=== PATIENT | female | born 1995 | race Caucasian/White ===

== ENCOUNTER 2020-06-17 10:35 | Inpatient (IN) | payer BC ==
[~2020-06-17] VITALS: Ht 157.5 cm; Wt 68.1 kg
[2020-06-17 11:17] LABS: APPEARANCE,URINE Clear (CLEAR); BILIRUBIN,URINE Negative (NEGATIVE); BLOOD, URINE Trace-intact Ery/uL (NEGATIVE); COLOR,URINE Yellow (YELLOW); KETONES,URINE Negative (NEGATIVE); LEUKOCYTE ESTERASE ,URINE Negative (NEGATIVE); NITRITE, URINE Negative (NEGATIVE); PROTEIN,URINE Negative (NEGATIVE); UGLUCOSE Negative (NEGATIVE); UROBILINOGEN,URINE 0.2 EU/dL (0.2)
[2020-06-17] MEDS ORDERED: ONDANSETRON HCL/PF 4 MG/2 ML VIAL ONE (11:22)
[2020-06-17 11:23] LABS: BASOPHILS # (AUTO) 0.1 /CMM (0.0-0.2); BASOPHILS % (AUTO) 1.9 % (0.0-2.0); HEMATOCRIT 40 % (33-45); HEMOGLOBIN 13.5 g/dL (11.5-14.8); LYMPHOCYTES # (AUTO) 1.8 /CMM (0.8-4.8); MEAN CORPUSCULAR HGB CONC 34 g/dl (31.0-36.0); MEAN CORPUSCULAR VOLUME 88 fL (82-100); MONOCYTES # (AUTO) 0.5 /CMM (0.1-1.30); MONOCYTES % (AUTO) 7.4 % (2.0-12.0); NEUTROPHILS # (AUTO) 4.2 /CMM (1.8-8.9); NEUTROPHILS % (AUTO) 59.7 % (43.0-81.0); PLATELET COUNT (AUTO) 341 /CMM (150-450); RED BLOOD CELL COUNT(AUTO) 4.55 MIL/uL (4.0-5.2)
[2020-06-17] MEDS ORDERED: MORPHINE SULFATE INJ 4 MG/ML DISP.SYRIN ONE (11:23)
[2020-06-17 11:26] LABS: BACTERIA,URINE Few /HPF (None Seen); SQUAMOUS EPITHELIAL CELL,UR Many /HPF (None Seen)
[2020-06-17 11:30] LABS: CALCIUM, SERUM 8.5 mg/dL (8.5-10.1); CREATININE 0.8 mg/dL (0.6-1.3); POTASSIUM 4.3 mmol/L (3.5-5.1)
[2020-06-17] MEDS ORDERED: MORPHINE SULFATE INJ 2 MG/ML DISP.SYRIN IV ONE (11:30)
[2020-06-17] MEDS ORDERED: ONDANSETRON HCL/PF 4 MG/2 ML VIAL IVP ONE (11:30)
[2020-06-17] MEDS ORDERED: IV NS 0.9% 1,000 ML BAG IV ONE (11:30)
--- NOTE | 2020-06-17 11:41 | NUR ---
BIBS FROM HOME TO ER BED 7. AAOX4. NOT IN RESP DISTRESS. AMBULATORY. CAME IN FOR RLQ ABDOMINAL PAIN X 2 DAYS. PT RATES HER PAIN 7/10. DENIES NAUSEA NOR VOMMITING. MD WAS AT THE BEDSIDE FOR EVAL. BLOOD DRAWN BY TECH. IV LINE ESTABLISHED ON L AC 20G. MEDICATED ORDERED
[2020-06-17 11:42] LABS: ALBUMIN 3.7 g/dL (3.4-5.0); BILIRUBIN,DIRECT 0.1 mg/dL (0.0-0.2); BILIRUBIN,TOTAL 0.3 mg/dL (0.2-1.0); TOTAL PROTEIN, SERUM 7.4 g/dL (6.4-8.2)
[2020-06-17] MEDS ORDERED: PARO40TA4 PO (12:19)
[2020-06-17] MEDS ORDERED: NORE1TAB93 PO (12:19)
--- NOTE | 2020-06-17 12:22 | NUR ---
PAGED [facility].
[2020-06-17] MEDS ORDERED: PIPERACILLIN /TAZOBACTAM 3.375 G in IV D5W 50 ML IV ONE (12:30)
--- NOTE | 2020-06-17 13:28 | NUR ---
REPORT GIVEN TO JULIANA WADE FOR [facility]
--- NOTE | 2020-06-17 14:43 | NUR ---
NURSING SUP GAVE M/S BED 307-1.
--- NOTE | 2020-06-17 15:08 | NUR ---
PT TRASNPORTED TO UNIT ON WHELLCHAIR IN STABLE CONDITION. NAD NOTED DURING TRANSPORT. PT AMBULATEDFROM W/C TO BED
--- NOTE | 2020-06-17 15:11 | NUR ---
MS RN ADMITTING NOTES PT ADMITTED TO UNIT AT THIS TIME. PT TRANSPORTED BY WHEEL CHAIR TO UNIT AT THIS TIME. GOT REPORT FROM JULIANA FELIX, IN THE ER. AOX4. PT ABLE TO VERBALIZE NEEDS. VS BP 134/85 , HR 97, RR 20, T 99.0 , SPO2 99%. RESPIRATIONS EVEN AND UNLABORED WITH EQUAL RISE AND FALL IN CHEST. NO SOB NOTED , NO C/O PAIN AT THIS TIME, NO S/S OF ANY ANY ACUTE DISTRESS. IV ACCESS IN LAC G#20, INTACT AND PATENT. ACTIVE BOWEL SOUNDS IN ALL FOUR QUADRANTS, GOOD CIRCULATION WITH PRESENT PULSES. LUNG SOUNDS CLEAR THROUGHOUT ON AUSCULTATION.BELONGINGS ACCOUNTED FOR, SIGNED BY PT AND FILED IN CHART. PT ORIENTED TO ROOM/UNIT. SAFETY PRECAUTIONS IN PLACE. BED IN LOWEST LOCKED POSITION, SIDE RAILS UP X2, HOB ELEVATED TO SEMI FOWLERS POSITION, CALL LIGHT WITHIN REACH. WILL CONTINUE TO MONITOR
[2020-06-17 16:38] VITALS: BP 134/85
[2020-06-17] MEDS ORDERED: NEPRO 1,000 ML BOTTLE NG PRN (17:00)
[2020-06-17] MEDS ORDERED: Z GUARD REMEDY 2 OZ OINT TP PRN (17:30)
[2020-06-17] MEDS ORDERED: ZOLPIDEM TARTRATE 5 MG TABLET PO PRN (17:30)
[2020-06-17] MEDS ORDERED: MAGNESIUM HYDROXIDE 30 ML UDC PO PRN (17:30)
[2020-06-17] MEDS ORDERED: IV D5/ 0.9% NACL 1,000 ML IV PRN (17:30)
[2020-06-17] MEDS ORDERED: ONDANSETRON HCL/PF 4 MG/2 ML VIAL IVP PRN (17:30)
[2020-06-17] MEDS ORDERED: HYDROCODONE/APAP 5/325MG TABLET PO PRN (17:30)
[2020-06-17] MEDS ORDERED: MORPHINE SULFATE INJ 2 MG/ML DISP.SYRIN IV PRN (17:30)
[2020-06-17] MEDS ORDERED: ACETAMINOPHEN 325 MG TABLET PO PRN (17:30)
[2020-06-17] MEDS: PIPERACILLIN /TAZOBACTAM 3.375 G in IV D5W 100 ML IV SCH (18:20)
--- NOTE | 2020-06-17 19:00 | NUR ---
MS RN CLOSING NOTES PT. AWAKE IN BED AT THIS TIME, PT REMAINED STABLE THROUGHOUT SHIFT. ALL CARE NEED, TREATMENT AND MEDICATIONS ADMINISTERED ANTICIPATED PER ORDER. PT KEPT CLEAN AND DRY. ASPIRATION AND SAFETY PRECAUTIONS IN PLACE. BED IN LOWEST LOCKED POSITION, SIDE RAILS UP X2, HOB ELEVATED TO SEMI FOWLERS POSITION, CALL LIGHT WITHIN REACH. WILL CONTINUE TO MONITOR
[2020-06-17 20:00] VITALS: BP 120/63
--- NOTE | 2020-06-17 20:00 | NUR ---
MS RN OPENING NOTE: Received patient from morning nurse, awake and alert, and in bed. Noted patient steady gate when coming back from the restroom. Skin is intact. Noted Left AC 20g IV access. Flushes well, patent, no redness or infiltration. Patient on room air. Breathihng well. No SOB and is in no signs of distress. Breathing unlabored and equal. Safety precaution in place. Bed in lowest level, side rails x 2 are up, brakes are on, and call light is within reach. Will continue to monitor.
[2020-06-17 21:59] LABS: ALBUMIN 3.3 g/dL (3.4-5.0); BILIRUBIN,TOTAL 0.4 mg/dL (0.2-1.0); CALCIUM, SERUM 8.4 mg/dL (8.5-10.1); CREATININE 0.7 mg/dL (0.6-1.3); POTASSIUM 3.7 mmol/L (3.5-5.1); TOTAL PROTEIN, SERUM 6.6 g/dL (6.4-8.2)
[2020-06-17 22:52] LABS: BASOPHILS # (AUTO) 0.1 /CMM (0.0-0.2); BASOPHILS % (AUTO) 1.6 % (0.0-2.0); EOSINOPHILS % (AUTO) 5.4 % (0.0-6.0); HEMATOCRIT 39 % (33-45); LYMPHOCYTES # (AUTO) 2.9 /CMM (0.8-4.8); LYMPHOCYTES % (AUTO) 35.3 % (20.0-44.0); MEAN CORPUSCULAR HGB CONC 34 g/dl (31.0-36.0); MEAN CORPUSCULAR VOLUME 88 fL (82-100); MONOCYTES # (AUTO) 0.7 /CMM (0.1-1.30); MONOCYTES % (AUTO) 8.9 % (2.0-12.0); NEUTROPHILS % (AUTO) 48.8 % (43.0-81.0); PLATELET COUNT (AUTO) 336 /CMM (150-450); WHITE BLOOD COUNT (AUTO) 8.2 K/uL (4.3-11.0)
[2020-06-18] VITALS (9 sets, daily range): BP systolic 115–157; BP diastolic 66–86
[2020-06-18] MEDS: PIPERACILLIN /TAZOBACTAM 3.375 G in IV D5W 100 ML IV SCH ×3 (02:18→18:08)
--- NOTE | 2020-06-18 06:35 | NUR ---
MS RN NOTE: Patient is in bed awake and alert. Patient denies pain and discomfort at this time. Patient slept well. Is NPO since midnight. On room air; breathing unlabored and equal. No SOB, no signs of distress. Safety precaution in place. Bed in lowest level, side rails x 2 are up, brakes are on, and call light is within reach. Will endorse to next shift.
[2020-06-18 06:40] LABS: BASOPHILS # (AUTO) 0.1 /CMM (0.0-0.2); BASOPHILS % (AUTO) 1.4 % (0.0-2.0); EOSINOPHILS % (AUTO) 8.1 % (0.0-6.0); HEMATOCRIT 41 % (33-45); HEMOGLOBIN 13.5 g/dL (11.5-14.8); LYMPHOCYTES # (AUTO) 2.5 /CMM (0.8-4.8); LYMPHOCYTES % (AUTO) 36.1 % (20.0-44.0); MEAN CORPUSCULAR HGB CONC 33 g/dl (31.0-36.0); MEAN CORPUSCULAR VOLUME 88 fL (82-100); MONOCYTES # (AUTO) 0.6 /CMM (0.1-1.30); MONOCYTES % (AUTO) 9.2 % (2.0-12.0); NEUTROPHILS # (AUTO) 3.2 /CMM (1.8-8.9); NEUTROPHILS % (AUTO) 45.2 % (43.0-81.0); PLATELET COUNT (AUTO) 347 /CMM (150-450); RED BLOOD CELL COUNT(AUTO) 4.66 MIL/uL (4.0-5.2)
[2020-06-18 07:10] LABS: CALCIUM, SERUM 8.8 mg/dL (8.5-10.1); CREATININE 0.8 mg/dL (0.6-1.3); MAGNESIUM 2.2 mg/dL (1.8-2.4); PHOSPHORUS 4.1 mg/dL (2.5-4.9); POTASSIUM 4.2 mmol/L (3.5-5.1)
--- NOTE | 2020-06-18 07:30 | NUR ---
MS/RN OPENING NOTES Received patient resting in bed, A&O x 4. Denies any pain and discomfort at this time. Breathing even and non-labored on RA, saturating well. No respiratory or cardiac distress noted. IV access noted on LAC #20, patent and intact, running D5NS @50mL/hr. No bleeding, infection, or infiltration noted on site. Sensation from all peripheral extremities noted. Kept NPO for scheduled lap appendectomy today, consents signed and checklist done. Patient is ambulatory, instructed to use call light if in need of assistance getting up. Fall precautions maintained. Will continue to monitor patient.
[2020-06-18] MEDS: PAROXETINE HCL 20 MG TABLET PO SCH (08:02)
[2020-06-18] MEDS ORDERED: LO LOESTRIN FE PO SCH (09:00)
[2020-06-18] MEDS ORDERED: ANESTHESIA TRAY IN PYXIS 1 EA TRAY MC ONE (10:32)
[2020-06-18] MEDS ORDERED: BUPIVACAINE MPF 0.5% W/EPI INJ 30 ML VIAL ONE (10:32)
[2020-06-18] MEDS ORDERED: LIDOCAINE 1% INJ 50 ML MDV IJ ONE (10:32)
--- NOTE | 2020-06-18 13:40 | NUR ---
MS/RN NOTES Patient picked up by OR nurse, consents and pre-op checklist signed and done. Asked patient to remove jewelry for surgery, she placed it in her backpack. IV access on LAC #20 gauge, still patent and intact, and flushing well. VSS remained stable. Patient left safely from room.
[2020-06-18] MEDS ORDERED: SUCCINYLCHOLINE CHLORIDE 20 MG/ML VIAL ONE (13:44)
[2020-06-18] MEDS ORDERED: FENTANYL PF 100MCG/2ML AMPUL ONE (13:44)
[2020-06-18] MEDS ORDERED: MIDAZOLAM HCL 2 MG/2ML VIAL ONE (13:44)
[2020-06-18] MEDS ORDERED: PROPOFOL 20 ML IV ONE (13:44)
[2020-06-18] MEDS ORDERED: ONDANSETRON HCL/PF 4 MG/2 ML VIAL ONE (15:22)
--- NOTE | 2020-06-18 15:30 | NUR ---
MS/RN NOTES Received report from JULIANA Simmons. Patient back in the room in bed from OR, last pain medication given was demerol 30 mins ago in PACU. Breathing even and non-labored on RA, no SOB noted. No cardiac distress noted. Patient denies any pain/discomfort at this time. IV access noted to still be patent and intact, and flushing well on LAC #20 gauge. 3 abdominal incisions noted from procedure, covered with clean, dry dressing. Read and carried out written orders from Dr. Hennessy, notified pharmacy of new prescription orders. Will continue to monitor patient for any changes in condition.
[2020-06-18] MEDS ORDERED: ONDANSETRON HCL/PF 4 MG/2 ML VIAL IV PRN (16:00)
[2020-06-18] MEDS ORDERED: HYDROMORPHONE 1 MG/1 ML DISP.SYRIN IV PRN (16:00)
[2020-06-18] MEDS: HYDROCODONE/APAP 10/325MG TABLET PO PRN (16:14)
[2020-06-18] MEDS ORDERED: PIPERACILLIN /TAZOBACTAM 3.375 G in IV D5W 50 ML IV SCH (18:00)
--- NOTE | 2020-06-18 18:24 | NUR ---
MS/RN CLOSING NOTES Patient lying comfortably in bed, A&O x 4. Denies any pain and discomfort at this time, last norco given at 1613. Breathing even and non-labored on RA, saturating well. No respiratory or cardiac distress noted. IV access noted on LAC #20, patent and intact, running Zosyn @25mL/hr. No bleeding, infection, or infiltration noted on site. Sensation from all peripheral extremities noted. Abdominal dressings still clean, dry, and intact. Patient refusing to use SCDs and egg mattress pad at this time. Educated pt on its risks and benefits, pt verbalized understanding. Instructed to use call light if in need of assistance getting up. Fall precautions maintained. Will endorse to date night caregiver nurse.
--- NOTE | 2020-06-18 18:42 | NUR ---
MS/RN NOTES Patient asked friend, Claudia, to visit hospital so that pt can drop off car keys to her. Gave car keys to her and updated the belongings list.
--- NOTE | 2020-06-18 20:05 | NUR ---
MS/RN OPENING NOTE Patient awake in bed. A/O x4. Breath sounds clear, even, unlabored. No acute distress or SOB. On room air. Skin warm, pink, dry, appropriate for ethnicity. Wound dressing surgical x3 on abdomen, clean, dry, intact. CRP <3seconds. Sensations intact. Abdomen soft, round, non-tender. Bowel sounds normoactive in all quadrants. Able to move extremities well, physical education aide strength adequate. IV site LAC 20g, D5NS @ 120 ml/hr. IV patent and intact. Bed in low position, wheels locked, side rails up x2, call light within reach.
[2020-06-18] MEDS ORDERED: SIMVASTATIN 10 MG TABLET PO SCH (22:00)
[2020-06-19] MEDS: PIPERACILLIN /TAZOBACTAM 3.375 G in IV D5W 100 ML IV SCH ×2 (01:52→09:00)
[2020-06-19] MEDS: HYDROCODONE/APAP 10/325MG TABLET PO PRN (02:01)
--- NOTE | 2020-06-19 02:22 | NUR ---
MS/RN NOTE Patient c/o pain level 7 in abdomen, throbbing and aching. Administered norco as ordered. Will continue to monitor.
--- NOTE | 2020-06-19 06:04 | NUR ---
MS/RN CLOSING NOTE Patient asleep in bed. A/O x4. Breath sounds clear, even, unlabored. No acute distress or SOB. On room air. Wound dressing surgical x3 on abdomen, clean, dry, intact. Sensations intact. Abdomen soft, round, non-tender. Bowel sounds normoactive in all quadrants. IV site LAC 20g, D5NS @ 120 ml/hr. IV patent and intact. Bed in low position, wheels locked, side rails up x2, call light within reach.
[2020-06-19 06:52] LABS: BASOPHILS % (AUTO) 0.5 % (0.0-2.0); EOSINOPHILS % (AUTO) 1.1 % (0.0-6.0); HEMATOCRIT 39 % (33-45); LYMPHOCYTES # (AUTO) 2.2 /CMM (0.8-4.8); LYMPHOCYTES % (AUTO) 22.6 % (20.0-44.0); MEAN CORPUSCULAR HGB CONC 33 g/dl (31.0-36.0); MEAN CORPUSCULAR VOLUME 88 fL (82-100); MONOCYTES # (AUTO) 0.9 /CMM (0.1-1.30); MONOCYTES % (AUTO) 9.2 % (2.0-12.0); NEUTROPHILS # (AUTO) 6.4 /CMM (1.8-8.9); NEUTROPHILS % (AUTO) 66.6 % (43.0-81.0); PLATELET COUNT (AUTO) 354 /CMM (150-450); RED BLOOD CELL COUNT(AUTO) 4.46 MIL/uL (4.0-5.2); WHITE BLOOD COUNT (AUTO) 9.6 K/uL (4.3-11.0)
[2020-06-19 07:15] LABS: ALBUMIN 3.3 g/dL (3.4-5.0); BILIRUBIN,TOTAL 0.5 mg/dL (0.2-1.0); CALCIUM, SERUM 8.6 mg/dL (8.5-10.1); CREATININE 0.8 mg/dL (0.6-1.3); MAGNESIUM 2.1 mg/dL (1.8-2.4); PHOSPHORUS 3.4 mg/dL (2.5-4.9); POTASSIUM 3.7 mmol/L (3.5-5.1); TOTAL PROTEIN, SERUM 6.8 g/dL (6.4-8.2)
--- NOTE | 2020-06-19 07:30 | NUR ---
MS/RN OPENING NOTES Patient resting in bed, A&O x 4. Breathing even and non-labored on RA, saturating well. No respiratory or cardiac distress noted. No complaints of pain and discomfort at this time. IV access noted on LAC #20, patent and intact, running D5NS @125mL/hr. No bleeding, infection, or infiltration noted on site. Sensation from all peripheral extremities noted. Abdominal dressings remain clean, dry, and intact. Patient is ambulatory, instructed to use call light if in need of assistance getting up. Fall precautions maintained. Will continue with current plan of care.
[2020-06-19] MEDS ORDERED: HYDR-4384 PO (07:49)
[2020-06-19] MEDS ORDERED: SIMV10TA98 PO (07:49)
[2020-06-19] MEDS ORDERED: ONDA4TAB11 SL (07:49)
[2020-06-19 08:00] VITALS: BP 121/73
[2020-06-19] MEDS: PAROXETINE HCL 20 MG TABLET PO SCH (08:10)
[2020-06-19] MEDS ORDERED: Fenofibrate 48 MG TABLET PO SCH (09:00)
--- NOTE | 2020-06-19 13:40 | NUR ---
MS/C ENGINEER NOTES Patient picked up by friends Kaylan and Zoila @ 0014. Patient remained stable, no complaints of pain/discomfort upon discharge. VSS, afebrile, no SOB noted. Breathing even and non-labored on RA. No respiratory or cardiac distress noted. IV access removed on L AC #20 gauge with catheter intact, covered with clean, dry, dressing. No s/s of infection, bleeding, or infiltration noted on site. Abdominal incisions covered with clean, dry, dressing in place. No infection or bleeding noted on site. Patient refused to take pictures, just wants to "go home." Sensation from all peripheral extremities intact. Educated patient on discharge instructions, patient verbalized understanding. Patient left facility safely along with hospitalization documents and belongings.
== END 2020-06-19 13:45 | disposition home or self-care (01) | DRG 342 ==
LOC: ER 10:38 → MED 14:48
PROVIDERS: ADMIT Nurse Practitioner Acute Care; ATTEND Hospitalist
PROC: 0DTJ4ZZ Resection of Appendix, Percutaneous Endoscopic Approach (ICD-10-PCS; 2020-06-17)
PROC: 0DTJ4ZZ Resection of Appendix, Percutaneous Endoscopic Approach (ICD-10-PCS; principal; 2020-06-18)
DX: K35.80 Unspecified acute appendicitis (principal); E44.1 Mild protein-calorie malnutrition; F41.9 Anxiety disorder, unspecified; Z98.890 Other specified postprocedural states; R16.0 Hepatomegaly, not elsewhere classified; K38.1 Appendicular concretions; E78.5 Hyperlipidemia, unspecified; E78.1 Pure hyperglyceridemia
CPT/HCPCS: 36415; 80048-TC; 80053-TC; 80061-TC; 80076-TC; 81000-TC; 83690-TC; 83735-TC; 84100-TC; 84703-TC; 85025-TC; 85610-TC; 85730-TC; 86850-TC; 87081-TC; 88304-TC; G0378; J0330; J1100; J1885; J2250; J2270; J2405; J2543; J2704; J3010; J3490; J7030; J7042; J7060